=== PATIENT | male | born 1985 | race African-American/Black ===

== ENCOUNTER 2022-09-21 20:02 | Emergency (ER) | payer SELFPAY ==
--- NOTE | 2022-09-21 20:32 | PC.NURSE ---
Pt called for triage at 2031 and no answer.
--- NOTE | 2022-09-21 20:49 | PC.NURSE ---
Pt called again for triage. No answer.
== END 2022-09-21 21:24 | disposition left against medical advice (07) ==
DX: Z53.21 Procedure and treatment not carried out due to patient leaving prior to being seen by health care provider (principal)
CPT/HCPCS: 99199